=== PATIENT | female | born 1970 | race Two or more races ===

== ENCOUNTER 2017-04-21 07:30 | Inpatient (IN) | payer OTHER ==
[~2017-04-21] VITALS: Ht 167.6 cm; Wt 74.4 kg
== END 2017-05-01 11:32 | disposition home or self-care (01) | DRG 743 ==
LOC: SURG 04-28 07:30 → O/R 04-28 07:46 → OB/GYN 04-28 07:46
PROVIDERS: Obstetrics & Gynecology
PROC: 0UT70ZZ Resection of Bilateral Fallopian Tubes, Open Approach (ICD-10-PCS; 2017-04-28)
PROC: 0UT00ZZ Resection of Right Ovary, Open Approach (ICD-10-PCS; 2017-04-28)
PROC: 0UT90ZL Resection of Uterus, Supracervical, Open Approach (ICD-10-PCS; principal; 2017-04-28 15:45)
DX: D25.1 Intramural leiomyoma of uterus (principal); D25.2 Subserosal leiomyoma of uterus; N83.8 Other noninflammatory disorders of ovary, fallopian tube and broad ligament; N83.11 Corpus luteum cyst of right ovary; D64.89 Other specified anemias